=== PATIENT | male | born 1970 | race Caucasian/White ===

== ENCOUNTER 2022-01-05 01:43 | Emergency (ER) | payer OTHER ==
[2022-01-05] MEDS ORDERED: METHIMAZOLE5 MG PO ×2 (05:14→05:15)
[2022-01-05] MEDS ORDERED: AMLODIPINE BESY10 MG PO ×2 (05:14→05:15)
[2022-01-05] MEDS ORDERED: METOPROLOL TART25 MG PO ×2 (05:14→05:15)
== END 2022-01-05 05:20 | disposition home or self-care (01) ==
LOC: ER1 01:43
DX: Z76.0 Encounter for issue of repeat prescription (principal); I10 Essential (primary) hypertension; F17.200 Nicotine dependence, unspecified, uncomplicated
CPT/HCPCS: 99281